=== PATIENT | female | born 1990 | race African-American/Black ===

== ENCOUNTER 2024-05-01 23:50 | Emergency (ER) | payer MEDICAID, OTHER ==
[~2024-05-01] VITALS: Ht 165.1 cm; Wt 77.0 kg
[2024-05-02 00:02] VITALS: BP 188/86; PULSE 88; RESP 16; TEMP 97.8; O2SAT 97
[2024-05-02] MEDS ORDERED: HYDROCODONE/ACETAMINOPHEN 5/325MG TABLET PO ONE (00:30)
[2024-05-02] MEDS ORDERED: KETOROLAC 30MG/ML VIAL IM ONE (00:30)
[2024-05-02] MEDS ORDERED: AMLODIPINE 5MG TABLET PO ONE (00:45)
== END 2024-05-02 02:50 | disposition left against medical advice (07) ==
LOC: ER 23:50
DX: R51.9 Headache, unspecified (principal); I10 Essential (primary) hypertension
CPT/HCPCS: 99283